=== PATIENT | male | born 1985 | race Caucasian/White ===

== ENCOUNTER 2021-02-05 09:11 | Emergency (ER) | payer BC, SELFPAY ==
[2021-02-05 09:24] VITALS: BP 140/80; PULSE 66; RESP 16; TEMP 36.6; O2SAT 97; BMI 30.4
--- NOTE | 2021-02-05 10:00 | ED.BACK ---
HPI - Back Pain/Injury General Chief Complaint: Back Pain/Injury Stated Complaint: back pain Time Seen by Provider: 02/05/21 09:27 Source: patient Mode of arrival: Ambulatory Limitations: no limitations History of Present Illness HPI Narrative: Patient is a 35-year-old male who is here for evaluation of lower back discomfort. Approximately 24 hours ago when he was getting out of his car he felt a slight twinge in his right lower back. He did not think much of it. He has had lower back discomfort in the past. He went about his day. Approximately 330 in the morning he woke up with severe pain in his back. He does have some discomfort on his anterior thigh on the right. No fevers. No vomiting. No urinary symptoms. No change in bowel habits. He went to an outside facility last evening. He state he received a shot of steroids. Was sent home with diazepam, Tylenol and ibuprofen. He also received a prescription for lidocaine patches. He states that his symptoms have not improved. He did not have any imaging at the outside facility so he came to this emergency department for evaluation. Related Data Previous Rx's Medication Instructions Recorded cyclobenzaprine 10 mg tablet 10 mg PO TID PRN #14 tab 02/05/21 hydrocodone 5 mg-acetaminophen 325 1 tab PO Q8H PRN #14 tab 02/05/21 mg tablet prednisone 20 mg tablet 20 mg PO DAILY 3 Days #3 tab 02/05/21 Review of Systems Constitutional Constitutional: Denies fever(s) Cardiovascular Cardiovascular: Reports system reviewed and no additional complaints, except as documented Gastrointestinal Gastrointestinal: Reports system reviewed and no additional complaints, except as documented Genitourinary Genitourinary: Reports system reviewed and no additional complaints, except as documented Musculoskeletal Musculoskeletal: Reports system reviewed and no additional complaints, except as documented and Reports as per HPI Integumentary/Breasts Skin/Breast: Reports system reviewed and no additional complaints, except as documented Neurologic Neurologic: Reports system reviewed and no additional complaints, except as documented and Reports as per HPI Hematologic/Lymphatic On Anticoagulants: No Patient History Medical History Patient denies medical problems Social History lives independently: Yes Exam Initial Vital Signs Initial Vital Signs: Vital Signs Temperature 97.8 F 02/05/21 09:24 Pulse Rate 66 02/05/21 09:24 Respiratory Rate 16 02/05/21 09:24 Blood Pressure 140/80 02/05/21 09:24 Pulse Oximetry 97 02/05/21 09:24 Const General: cooperative and comfortable HENMT Head: normal to inspection and normocephalic Resp Effort & Inspection: normal respiratory effort Cardio Rate: regular rate Back/Spine/Pelvis Cervical Spine: No cervical muscular tenderness and No cervical spinal tenderness Thoracic/Lumbar Spine: paraspinal tenderness (Right-sided), No thoraco-lumbar spasm, No thoracic spinal tenderness and No lumbar spinal tenderness Sacroiliac Joints: tender to palpation right Skin General: no rashes or lesions noted Neuro General: patient alert, patient awake and moves all extremities Extrem General: normal to inspection and capillary refill normal Psych Appearance: grossly normal and well kempt Course Orders Ordered: Discontinued Medications Hydromorphone HCl (Hydromorphone 1 Mg Inj) 1 mg IM NOW ONE Stop: 02/05/21 10:05 Vital Signs Vital signs: Vital Signs - 8 hr 02/05/21 09:24 Temperature 97.8 F Pulse Rate 66 Respiratory Rate 16 Blood Pressure 140/80 Pulse Oximetry 97 MDM - Back Pain/Injury MDM Narrative Medical decision making narrative: Low suspicion for fracture. Low suspicion for cauda equina. Afebrile. No urinary symptoms. There has been no trauma. No indication for radiologic studies. Urine he has a prescription for Tylenol and ibuprofen and also lidocaine patches. I will place him on steroids for the next couple days and also provide further muscle relaxants and also pain medication. He was given return precautions and follow-up instructions. He expressed understanding and agreement. Discharge Plan Departure Patient Disposition: Home Clinical Impression: Strain of lumbar region Instructions: DI for Back Spasm Activity Restrictions/Additional Instructions: It is important that you stay active. Most back pain will improve over the next couple weeks. Take the medications as directed. Contact your primary doctor for a follow-up. Return to the emergency department for any new or worsening symptoms Prescriptions: New cyclobenzaprine 10 mg tablet 10 mg PO TID PRN (Reason: muscle spasm) Qty: 14 0RF hydrocodone-acetaminophen 5-325 mg tablet 1 tab PO Q8H PRN (Reason: pain) Qty: 14 0RF prednisone 20 mg tablet 20 mg PO DAILY 3 Days Qty: 3 0RF
[2021-02-05] MEDS: HYDROMORPHONE 1 MG INJ IM (10:35)
[2021-02-05 10:40] VITALS: BP 138/74; PULSE 80; RESP 16; O2SAT 97
== END 2021-02-05 10:42 | disposition home or self-care (01) ==
PROVIDERS: Emergency Provider Emergency Medicine
DX: S39.012A Strain of muscle, fascia and tendon of lower back, initial encounter (principal); X58.XXXA Exposure to other specified factors, initial encounter
CPT/HCPCS: 96372; 99283; J1170

== ENCOUNTER 2022-06-29 14:02 | Emergency (ER) | payer BC, SELFPAY ==
[2022-06-29 14:13] VITALS: BP 145/87; PULSE 71; RESP 16; TEMP 36.7; O2SAT 98; BMI 31.2
--- NOTE | 2022-06-29 14:18 | DI.RAD.S_ITS ---
PROCEDURE: XR CHEST 1V INDICATIONS: chest pain TECHNIQUE: One view of the chest was acquired. COMPARISON: None. FINDINGS: Surgical changes and devices: None. Lungs and pleura: Lungs are clear. No pleural effusions or pneumothorax. Mediastinum: Mediastinal contours appear normal. Heart size is normal. Bones and chest wall: No suspicious bony lesions. Overlying soft tissues appear unremarkable. IMPRESSION: No acute cardiopulmonary findings. Dictated by: Ninoska Siegel M.D. on 06/29/2022 at 15:11 Approved by: Ninoska Siegel M.D. on 06/29/2022 at 15:14
[2022-06-29 14:46] LABS: Add Manual Diff / Slide Review NO; Basophils Absolute Auto 0 /uL (0-100); Basophils Percent Auto 0.4 % (0-2); Eosinophils Absolute Auto 400 /uL (0-450); Eosinophils Percent Auto 4.6 % (2-4); Hematocrit 43.3 % (41-53); Hemoglobin 14.9 g/dL (13.5-17.5); Lymphocytes Absolute Auto 2400 /uL (1100-4500); Lymphocytes Percent Auto 30.1 % (25-40); Mean Corpuscular HGB Conc 34.4 % (30-36); Mean Corpuscular Hemoglobin 29.6 PG (26-34); Monocytes Absolute Auto 500 /uL (0-900); Monocytes Percent Auto 5.9 % (3-14); Neutrophils Absolute Auto 4700 /uL (1500-7000); Platelet Count 274 X10^3/uL (150-400); Red Blood Cell Count 5.04 X10^6/uL (4.5-5.9); Red Cell Distribution Width 13.5 % (11.6-14.8); White Blood Cell Count 7.9 X10^3/uL (4.5-11.0)
[2022-06-29 14:53] LABS: INR 1.1 (0.9-1.3); Prothrombin Time 12.1 SECONDS (10.1-12.7)
[2022-06-29 14:55] LABS: PTT Partial Thromboplastin Tim 37 SECONDS (26-36)
[2022-06-29 14:59] LABS: Alanine Aminotransferase 24 IU/L (<50); Albumin Globulin Ratio 1.3 (1.0-2.8); Alkaline Phosphatase 71 U/L (38-126); Aspartate Aminotransferase 29 IU/L (17-59); BUN Creatinine Ratio 13.3 (6-22); Bilirubin Total 0.5 mg/dL (0.2-1.3); Blood Urea Nitrogen 12 mg/dL (9-20); Calcium 9.6 mg/dL (8.4-10.2); Carbon Dioxide 29 mmol/L (22-32); Chloride 102 mmol/L (98-107); Creatine Kinase 103 U/L (55-170); Estimated Glomerular Filt Rate > 60 mL/min (>60); Globulin 3.8 g/dL (1.7-4.1); Glucose 91 mg/dL (70-100); HEMOLYSIS < 15 (0-50); Lipase 158 U/L (23-300); Magnesium 2.2 mg/dL (1.6-2.3); Potassium 3.9 mmol/L (3.4-5.1); Sodium 141 mmol/L (137-145); Total Protein 8.8 g/dL (6.3-8.2)
[2022-06-29 15:09] LABS: Troponin I < 0.012 ng/mL (0.01-0.034)
[2022-06-29 15:14] LABS: CKMB % Relative Index 0.4 % (1.5-5.0); Creatine Kinase MB 0.45 ng/mL (<2.37)
[2022-06-29 15:18] LABS: COVID19 -Nasal RAPID Negative (Negative)
--- NOTE | 2022-06-29 18:19 | ED_ITS ---
HPI - Chest Pain <Avel Goldberg PA-C - Last Filed: 06/29/22 18:30> General Chief Complaint: Chest Pain Stated Complaint: chest heavy/sharp pain in LT shoulder Time Seen by Provider: 06/29/22 16:43 Source: patient Mode of arrival: Ambulatory Limitations: no limitations History of Present Illness HPI narrative: 36-year-old male with no reported past medical history presents to the ED with left-sided chest pain, left shoulder pain. Patient states that his pain started last night after he came home carrying several grocery bags. Patient states that he has also been doing increasing levels of upper body weightlifting over the past few days. Patient states that the pain is reproducible with pressure on his left shoulder, such as when he sleeps on his left side. Pain is not reproducible with inspiration. Patient denies fever, chills, shortness of breath, nausea, vomiting, abdominal pain, dysuria, lightheadedness, dizziness, syncope. No history of early cardiac in the family. Related Data Previous Rx's Medication Instructions Recorded cyclobenzaprine 10 mg tablet 10 mg PO TID PRN muscle spasm #14 02/05/21 tabs hydrocodone 5 mg-acetaminophen 325 1 tab PO Q8H PRN pain #14 tabs 02/05/21 mg tablet Allergies Allergy/AdvReac Type Severity Reaction Status Date / Time No Known Drug Allergies Allergy Verified 06/29/22 14:13 Review of Systems <Avel Goldberg PA-C - Last Filed: 06/29/22 18:30> Review of Systems ROS Unobtainable: All systems reviewed & are unremarkable except as noted in HPI and below Constitutional Constitutional: Denies chills, Denies fatigue, Denies fever(s), Denies frequent falls, Denies lethargy and Denies weakness Eyes Eyes: Denies change in vision, Denies eye discharge, Denies irritation and Denies loss of vision ENT Ears, Nose, Mouth, and Throat: Denies change in voice, Denies dizziness, Denies neck pain, Denies sore throat and Denies throat swelling Cardiovascular Cardiovascular: Reports chest pain, Denies irregular heart rhythm, Denies lightheadedness, Denies palpitations, Denies dyspnea, Denies dyspnea on exertion and Denies orthopnea Respiratory Respiratory: Denies cough, Denies dyspnea, Denies dyspnea on exertion and Denies wheezing Gastrointestinal Gastrointestinal: Denies abdominal pain, Denies change in bowel habits, Denies diarrhea, Denies nausea and Denies vomiting Genitourinary Genitourinary: Denies hematuria, Denies flank pain, Denies urinary incontinence and Denies urinary urgency Musculoskeletal Musculoskeletal: Denies back pain, Denies muscle weakness, Denies neck pain, Denies numbness and Denies tingling Comments: Left shoulder pain Integumentary/Breasts Skin/Breast: Denies pruritus, Denies erythema, Denies rash and Denies wounds Neurologic Neurologic: Denies behavioral changes, Denies confusion, Denies dizziness, Denies frequent falls, Denies loss of vision, Denies numbness, Denies tingling and Denies weakness Psychiatric Psychiatric: Denies anxiety, Denies behavioral changes, Denies confusion, Denies depression, Denies homicidal ideation and Denies suicidal ideation Endocrine Endocrine: Denies fatigue, Denies flushing and Denies palpitations Hematologic/Lymphatic Hematologic/Lymphatic: Denies easy bruising Allergic/Immunologic Allergic/Immunologic: Denies urticaria, Denies throat swelling and Denies wheezing Patient History <Avel Goldberg PA-C - Last Filed: 06/29/22 18:30> Medical History Patient denies medical problems Social History lives independently: Yes Smoking Status: Never smoker Smoking Status: Never smoker alcohol intake frequency: a few times a week Substance Use Type: does not use Exam <Avel Goldberg PA-C - Last Filed: 06/29/22 18:30> Narrative Exam Narrative: Const General:?cooperative, healthy appearing and comfortable [facility] Head:?normal to inspection Ears:?hearing grossly normal bilaterally Nose:?external nose normal Face and sinus:?normal facial exam and sinuses nontender Mouth:?oral mucosae normal Throat:?posterior oropharynx normal Eyes General:?appearance normal, both eyes and all related structures Neck Neck:?normal visual inspection and no lymphadenopathy noted Resp Effort & Inspection:?normal respiratory effort Auscultation:?clear to auscultation bilaterally Cardio Rate:?regular rate Rhythm:?regular rhythm No chest wall tenderness Neuro General:?patient alert, patient awake and patient oriented x3 Initial Vital Signs Initial Vital Signs: Vital Signs Temperature 98.1 F 06/29/22 14:13 Pulse Rate 71 06/29/22 14:13 Respiratory Rate 16 06/29/22 14:13 Blood Pressure 145/87 H 06/29/22 14:13 Pulse Oximetry 98 06/29/22 14:13 Oxygen Delivery Method Room Air 06/29/22 14:13 <Deny Farfan MD - Last Filed: 07/17/22 22:10> Initial Vital Signs Initial Vital Signs: Vital Signs Temperature 98.1 F 06/29/22 14:13 Pulse Rate 71 06/29/22 14:13 Respiratory Rate 16 06/29/22 14:13 Blood Pressure 145/87 H 06/29/22 14:13 Pulse Oximetry 98 06/29/22 14:13 Oxygen Delivery Method Room Air 06/29/22 14:13 Course <Avel Goldberg PA-C - Last Filed: 06/29/22 18:30> Orders Ordered: Discontinued Medications Aspirin (Aspirin 81 Mg Chew Tab) 324 mg PO NOW ONE Stop: 06/29/22 14:19 Vital Signs Vital signs: Vital Signs - 8 hr 06/29/22 14:13 06/29/22 18:27 Temperature 98.1 F Pulse Rate 71 65 Respiratory Rate 16 16 Blood Pressure 145/87 H 147/80 H Pulse Oximetry 98 97 Oxygen Delivery Method Room Air Room Air <Deny Farfan MD - Last Filed: 07/17/22 22:10> Orders Ordered: Discontinued Medications Aspirin (Aspirin 81 Mg Chew Tab) 324 mg PO NOW ONE Stop: 06/29/22 14:19 Vital Signs Vital signs: Vital Signs - 8 hr 06/29/22 14:13 06/29/22 18:27 Temperature 98.1 F Pulse Rate 71 65 Respiratory Rate 16 16 Blood Pressure 145/87 H 147/80 H Pulse Oximetry 98 97 Oxygen Delivery Method Room Air Room Air MDM - Chest Pain <Avel Goldberg PA-C - Last Filed: 06/29/22 18:30> Lab Data 06/29/22 14:30 06/29/22 14:30 Labs: Lab Results 06/29/22 06/29/22 06/29/22 Range/Units 14:20 14:30 14:30 WBC 7.9 (4.5-11.0) X10^3/uL RBC 5.04 (4.5-5.9) X10^6/uL Hgb 14.9 (13.5-17.5) g/dL Hct 43.3 (41-53) % MCV 86.0 (80-100) fL MCH 29.6 (26-34) PG MCHC 34.4 (30-36) % RDW 13.5 (11.6-14.8) % Plt Count 274 (150-400) X10^3/uL Neut % (Auto) 59.0 (50-75) % Lymph % (Auto) 30.1 (25-40) % Cascade % (Auto) 5.9 (3-14) % Eos % (Auto) 4.6 H (2-4) % Baso % (Auto) 0.4 (0-2) % Neut # (Auto) 4700 (8766-2038) /uL Lymph # (Auto) 2400 (6554-6511) /uL Cascade # (Auto) 500 (0-900) /uL Eos # (Auto) 400 (0-450) /uL Baso # (Auto) 0 (0-100) /uL PT 12.1 (10.1-12.7) SECONDS INR 1.1 (0.9-1.3) APTT 37 H (26-36) SECONDS Sodium (137-145) mmol/L Potassium (3.4-5.1) mmol/L Chloride (98-107) mmol/L Carbon Dioxide (22-32) mmol/L BUN (9-20) mg/dL Creatinine (0.66-1.25) mg/dL Estimated GFR (>60) mL/min BUN/Creatinine Ratio (6-22) Glucose (70-100) mg/dL Calcium (8.4-10.2) mg/dL Magnesium (1.6-2.3) mg/dL Total Bilirubin (0.2-1.3) mg/dL AST (17-59) IU/L ALT (<50) IU/L Alkaline Phosphatase (38-126) U/L Total Creatine Kinase (55-170) U/L CK-MB (CK-2) (<2.37) ng/mL CK-MB (CK-2) Rel Index (1.5-5.0) % Troponin I (0.01-0.034) ng/mL Total Protein (6.3-8.2) g/dL Albumin (3.5-5.0) g/dL Globulin (1.7-4.1) g/dL Albumin/Globulin Ratio (1.0-2.8) Lipase (23-300) U/L SARS-CoV-2 (PCR) Negative (Negative) 06/29/22 Range/Units 14:30 WBC (4.5-11.0) X10^3/uL RBC (4.5-5.9) X10^6/uL Hgb (13.5-17.5) g/dL Hct (41-53) % MCV (80-100) fL MCH (26-34) PG MCHC (30-36) % RDW (11.6-14.8) % Plt Count (150-400) X10^3/uL Neut % (Auto) (50-75) % Lymph % (Auto) (25-40) % Cascade % (Auto) (3-14) % Eos % (Auto) (2-4) % Baso % (Auto) (0-2) % Neut # (Auto) (6497-4717) /uL Lymph # (Auto) (2261-8146) /uL Cascade # (Auto) (0-900) /uL Eos # (Auto) (0-450) /uL Baso # (Auto) (0-100) /uL PT (10.1-12.7) SECONDS INR (0.9-1.3) APTT (26-36) SECONDS Sodium 141 (137-145) mmol/L Potassium 3.9 (3.4-5.1) mmol/L Chloride 102 (98-107) mmol/L Carbon Dioxide 29 (22-32) mmol/L BUN 12 (9-20) mg/dL Creatinine 0.90 (0.66-1.25) mg/dL Estimated GFR > 60 (>60) mL/min BUN/Creatinine Ratio 13.3 (6-22) Glucose 91 (70-100) mg/dL Calcium 9.6 (8.4-10.2) mg/dL Magnesium 2.2 (1.6-2.3) mg/dL Total Bilirubin 0.5 (0.2-1.3) mg/dL AST 29 (17-59) IU/L ALT 24 (<50) IU/L Alkaline Phosphatase 71 (38-126) U/L Total Creatine Kinase 103 (55-170) U/L CK-MB (CK-2) 0.45 (<2.37) ng/mL CK-MB (CK-2) Rel Index 0.4 L (1.5-5.0) % Troponin I < 0.012 (0.01-0.034) ng/mL Total Protein 8.8 H (6.3-8.2) g/dL Albumin 5.0 (3.5-5.0) g/dL Globulin 3.8 (1.7-4.1) g/dL Albumin/Globulin Ratio 1.3 (1.0-2.8) Lipase 158 (23-300) U/L SARS-CoV-2 (PCR) (Negative) MDM Narrative Medical decision making narrative: 36-year-old male with no reported past medical history presents to the ED with left-sided chest pain, left shoulder pain. Concern for ACS versus musculoskeletal sprain/strain versus other. Will obtain EKG, labs, chest x-ray, troponin. EKG is normal sinus rhythm with no acute ST-T changes no axis deviation. Chest x-ray, labs, troponin within normal limits. Patient's symptoms likely due to musculoskeletal etiology. Recommend Tylenol, ibuprofen for symptoms. Recommend follow-up with PCP. ED return precautions discussed with patient. Patient verbalized understanding. Medical records reviewed: Yes <Deny Farfan MD - Last Filed: 07/17/22 22:10> Lab Data Labs: Lab Results 06/29/22 06/29/22 06/29/22 Range/Units 14:20 14:30 14:30 WBC 7.9 (4.5-11.0) X10^3/uL RBC 5.04 (4.5-5.9) X10^6/uL Hgb 14.9 (13.5-17.5) g/dL Hct 43.3 (41-53) % MCV 86.0 (80-100) fL MCH 29.6 (26-34) PG MCHC 34.4 (30-36) % RDW 13.5 (11.6-14.8) % Plt Count 274 (150-400) X10^3/uL Neut % (Auto) 59.0 (50-75) % Lymph % (Auto) 30.1 (25-40) % Cascade % (Auto) 5.9 (3-14) % Eos % (Auto) 4.6 H (2-4) % Baso % (Auto) 0.4 (0-2) % Neut # (Auto) 4700 (4651-8122) /uL Lymph # (Auto) 2400 (3650-7457) /uL Cascade # (Auto) 500 (0-900) /uL Eos # (Auto) 400 (0-450) /uL Baso # (Auto) 0 (0-100) /uL PT 12.1 (10.1-12.7) SECONDS INR 1.1 (0.9-1.3) APTT 37 H (26-36) SECONDS Sodium (137-145) mmol/L Potassium (3.4-5.1) mmol/L Chloride (98-107) mmol/L Carbon Dioxide (22-32) mmol/L BUN (9-20) mg/dL Creatinine (0.66-1.25) mg/dL Estimated GFR (>60) mL/min BUN/Creatinine Ratio (6-22) Glucose (70-100) mg/dL Calcium (8.4-10.2) mg/dL Magnesium (1.6-2.3) mg/dL Total Bilirubin (0.2-1.3) mg/dL AST (17-59) IU/L ALT (<50) IU/L Alkaline Phosphatase (38-126) U/L Total Creatine Kinase (55-170) U/L CK-MB (CK-2) (<2.37) ng/mL CK-MB (CK-2) Rel Index (1.5-5.0) % Troponin I (0.01-0.034) ng/mL Total Protein (6.3-8.2) g/dL Albumin (3.5-5.0) g/dL Globulin (1.7-4.1) g/dL Albumin/Globulin Ratio (1.0-2.8) Lipase (23-300) U/L SARS-CoV-2 (PCR) Negative (Negative) 06/29/22 Range/Units 14:30 WBC (4.5-11.0) X10^3/uL RBC (4.5-5.9) X10^6/uL Hgb (13.5-17.5) g/dL Hct (41-53) % MCV (80-100) fL MCH (26-34) PG MCHC (30-36) % RDW (11.6-14.8) % Plt Count (150-400) X10^3/uL Neut % (Auto) (50-75) % Lymph % (Auto) (25-40) % Cascade % (Auto) (3-14) % Eos % (Auto) (2-4) % Baso % (Auto) (0-2) % Neut # (Auto) (8294-9356) /uL Lymph # (Auto) (1386-9173) /uL Cascade # (Auto) (0-900) /uL Eos # (Auto) (0-450) /uL Baso # (Auto) (0-100) /uL PT (10.1-12.7) SECONDS INR (0.9-1.3) APTT (26-36) SECONDS Sodium 141 (137-145) mmol/L Potassium 3.9 (3.4-5.1) mmol/L Chloride 102 (98-107) mmol/L Carbon Dioxide 29 (22-32) mmol/L BUN 12 (9-20) mg/dL Creatinine 0.90 (0.66-1.25) mg/dL Estimated GFR > 60 (>60) mL/min BUN/Creatinine Ratio 13.3 (6-22) Glucose 91 (70-100) mg/dL Calcium 9.6 (8.4-10.2) mg/dL Magnesium 2.2 (1.6-2.3) mg/dL Total Bilirubin 0.5 (0.2-1.3) mg/dL AST 29 (17-59) IU/L ALT 24 (<50) IU/L Alkaline Phosphatase 71 (38-126) U/L Total Creatine Kinase 103 (55-170) U/L CK-MB (CK-2) 0.45 (<2.37) ng/mL CK-MB (CK-2) Rel Index 0.4 L (1.5-5.0) % Troponin I < 0.012 (0.01-0.034) ng/mL Total Protein 8.8 H (6.3-8.2) g/dL Albumin 5.0 (3.5-5.0) g/dL Globulin 3.8 (1.7-4.1) g/dL Albumin/Globulin Ratio 1.3 (1.0-2.8) Lipase 158 (23-300) U/L SARS-CoV-2 (PCR) (Negative) Discharge Plan Departure Patient Disposition: Home Clinical Impression: Atypical chest pain Instructions: DI for Atypical Chest Pain Activity Restrictions/Additional Instructions: You were evaluated in the ED today for chest pain and left shoulder pain. Your chest x-ray, EKG, labs were normal. Your symptoms are likely due to a musculoskeletal sprain/strain. You may take ibuprofen or Tylenol for your symptoms. Please follow-up with your PCP as soon as possible. Return to the ED if you have worsening chest pain, shortness of breath. Prescriptions: No Action cyclobenzaprine 10 mg tablet 10 mg PO TID PRN (Reason: muscle spasm) Qty: 14 0RF hydrocodone-acetaminophen 5-325 mg tablet 1 tab PO Q8H PRN (Reason: pain) Qty: 14 0RF Referrals: Miscellaneous,[facility] [Primary Care Provider] - Stand Alone Forms: Patient Portal/API <Deny Farfan MD - Last Filed: 07/17/22 22:10> Cosign ED Attending Cosignature Attestation: I was immediately available in the department for consultation. This documentation has been reviewed and I agree with assessment and plan. Supervised by Deny Farfan MD
[2022-06-29 18:27] VITALS: BP 147/80; PULSE 65; RESP 16; O2SAT 97
== END 2022-06-29 18:28 | disposition home or self-care (01) ==
PROVIDERS: Emergency Medicine; Emergency Provider Student in an Organized Health Care Education/Training Program
DX: R07.89 Other chest pain (principal); Z20.822 Contact with and (suspected) exposure to COVID-19
CPT/HCPCS: 36415; 71045; 80053; 82550; 82553; 83690; 83735; 84484; 85025; 85610; 85730; 87635; 93005; 93010; 99283; 99284; C9803